=== PATIENT | female | born 1970 | race African-American/Black ===

== ENCOUNTER 2017-09-02 14:28 | Emergency (ER) | payer OTHER ==
[2017-09-02 14:42] VITALS: BP 134/95; PULSE 89; TEMP 98.4; BMI 21.7
--- NOTE | 2017-09-02 15:36 | PDOC ---
History of Present Illness - General Chief Complaint: Pain Stated Complaint: STOMACH PAIN Time Seen by Provider: 09/02/17 15:33 Past History - Past Medical History Allergies/Adverse Reactions: Allergies Allergy/AdvReac Type Severity Reaction Status Date / Time No Known Allergies Allergy Verified 09/02/17 14:37 Home Medications: Ambulatory Orders Cefadroxil Hydrate [Cefadroxil] 500 mg PO BID #14 capsule 05/05/14 Olmesartan/Hydrochlorothiazide [Benicar Hct 20-12.5 mg Tablet] 1 each PO DAILY 05/05/14 Clotrimazole/Betamet Diprop [Lotrisone -] 1 applic TP BID #1 tube NS 05/10/14 - Surgical History Abdominal Surgery: Yes () - Suicide/Smoking/Psychosocial Hx Smoking History: Never smoked Have you smoked in the past 12 months: No Number of Cigarettes Smoked Daily: 0 Information on smoking cessation initiated: No Hx Alcohol Use: No Drug/Substance Use Hx: No Substance Use Type: None *Physical Exam - Vital Signs Last Vital Signs Temp Pulse Resp BP Pulse Ox 98.4 F 89 16 134/95 100 09/02/17 14:38 09/02/17 14:38 09/02/17 14:38 09/02/17 14:38 09/02/17 14:38
== END 2017-09-02 16:05 | disposition left against medical advice (07) ==
LOC: JERFT 14:28
DX: Z53.21 Procedure and treatment not carried out due to patient leaving prior to being seen by health care provider (principal)
CPT/HCPCS: 99281-25

== ENCOUNTER 2017-09-02 16:15 | Emergency (ER) | payer OTHER ==
[2017-09-02 16:32] VITALS: BP 159/96; PULSE 95; TEMP 98.1; BMI 29.0
--- NOTE | 2017-09-02 17:54 | PDOC ---
History of Present Illness - General Chief Complaint: Pain Stated Complaint: PAIN Time Seen by Provider: 09/02/17 17:08 - History of Present Illness Initial Comments: 09/02/17 17:49 47 yo F with no significant pmh who presents with left lower quadrant abdominal pain. Pt. reports 4 days of stable, unrelenting, dull, crampy, focal, abdominal pain of 4/10 severity. Denies N/V, fevers/chills, postprandial pain, loss of appetite. constipation, diarrhea, dysuria, heamaturia, blood in stool, change in bowel habits. Last BM yesterday evening. Pt. endorses normal flatulence. Denies precipitating or alleviating factors. No changes in diet, sick contacts, or recent travels. LMP 2003. Patient on Depo Provera contraception. No irregular vaginal bleeding. Drinks alcohol 1 beer per night for 20 + years. + Tobacco use. Denies illicit drug use. H/o previous C section. Denies history of other abdominal procedures or GI pathology. Past History - Past Medical History Allergies/Adverse Reactions: Allergies Allergy/AdvReac Type Severity Reaction Status Date / Time No Known Allergies Allergy Verified 09/02/17 16:32 Home Medications: Ambulatory Orders Ciprofloxacin [Cipro -] 500 mg PO Q12H #14 tablet MDD 2 09/02/17 Medroxyprogesterone Acetate [Depo-Provera] 150 mg IM ASDIR 09/02/17 Metronidazole 500 mg PO TID #21 tablet 09/02/17 Nifedipine ER [Procardia Xl -] 30 mg PO DAILY 09/02/17 - Surgical History Abdominal Surgery: Yes () - Suicide/Smoking/Psychosocial Hx Smoking History: Never smoked Have you smoked in the past 12 months: No Number of Cigarettes Smoked Daily: 0 Information on smoking cessation initiated: No Hx Alcohol Use: No Drug/Substance Use Hx: No Substance Use Type: None Review of Systems - Review of Systems Comments:: 09/02/17 17:54 GENERAL/CONSTITUTIONAL: No fever or chills. No weakness. HEAD, EYES, EARS, NOSE AND THROAT: No change in vision. No ear pain or discharge. No sore throat.- CARDIOVASCULAR: No chest pain or shortness of breath RESPIRATORY: No cough, wheezing, or hemoptysis. GASTROINTESTINAL: + Abdominal pain. No nausea, vomiting, diarrhea or constipation. GENITOURINARY: No dysuria, frequency, or change in urination. MUSCULOSKELETAL: No joint or muscle swelling or pain. No neck or back pain. SKIN: No rash NEUROLOGIC: No headache, vertigo, loss of consciousness, or change in strength/ sensation. ENDOCRINE: No increased thirst. No abnormal weight change HEMATOLOGIC/LYMPHATIC: No anemia, easy bleeding, or history of blood clots. ALLERGIC/IMMUNOLOGIC: No hives or skin allergy. *Physical Exam - Vital Signs Last Vital Signs Temp Pulse Resp BP Pulse Ox 98.1 F 95 H 18 159/96 100 09/02/17 16:24 09/02/17 16:24 09/02/17 16:24 09/02/17 16:24 09/02/17 16:24 - Physical Exam Comments: 09/02/17 17:54 GENERAL: Awake, alert, and fully oriented, in no acute distress HEAD: No signs of trauma, normocephalic, atraumatic EYES: + Sclera icterus. PERRLA, EOMI, conjunctiva clear ENT: Auricles normal inspection, hearing grossly normal, nares patent, oropharynx clear without exudates. Moist mucosa NECK: Normal ROM, supple, no lymphadenopathy, JVD, or masses LUNGS: No distress, speaks full sentences, clear to auscultation bilaterally HEART: Regular rate and rhythm, normal S1 and S2, no murmurs, rubs or gallops, peripheral pulses normal and equal bilaterally. ABDOMEN: Soft, nontender, normoactive bowel sounds. No guarding, no rebound. No masses. Absent CVA ttp. Absent mcburney point tendernesws. Neg swain sign. Neg Rovsing sign. Neg suprapubic ttp. EXTREMITIES : Normal inspection, Normal range of motion, no edema. No clubbing or cyanosis. SKIN: Warm, Dry, normal turgor, no rashes or lesions noted. ED Treatment Course - LABORATORY CBC & Chemistry Diagram: 09/02/17 17:35 09/02/17 17:35 Medical Decision Making - Medical Decision Making 09/02/17 17:55 47 yo F with no significant pmh who presents with left lower focal quadrant abdominal pain of 4 days duration. Patient with no other associated symptoms and is hemodynamically stable.Pain is non reprducible and focal. No prior GI procedures. H/o . LMP 2003 and on Depo Provera. DDx: MSK related pain, Diverticulitis, ovarian cyst, ED Course: CBC, CMP, UA, Urine preg, CT AP 09/02/17 20:42 Pt. states that she is unable to wait in ED for formal interpretation of CT AP and provided us with her phone number. 09/02/17 22:35 CT AP: Mild wall thickening in distal sigmoid colon and rectum. Inflammatory vs infectious proctocolitis. Small/Mod fat containing umbilical hernia. 09/02/17 22:36 Urine preg: Neg Called patient ([phone]) and discussed CT AP results and F/u with GI. *DC/Admit/Observation/Transfer Diagnosis at time of Disposition: Strain of abdominal muscle Qualifiers: Encounter type: initial encounter Qualified Code(s): S39.011A - Strain of muscle, fascia and tendon of abdomen, initial encounter - Discharge Dispostion Disposition: HOME Condition at time of disposition: Stable Admit: No - Prescriptions Prescriptions: Ciprofloxacin [Cipro -] 500 mg PO Q12H #14 tablet MDD 2 Metronidazole 500 mg PO TID #21 tablet - Referrals Referrals: Toño Garcia MD [Staff Physician] - Omar Lopez MD [Primary Care Provider] - - Patient Instructions Printed Discharge Instructions: DI for Abdominal Pain-Adult Additional Instructions: Please retun to ED if you have abdominal pain with eating, nausea, vomiting, fevers/chills, worsening abdominal pain or worsening symptoms. Please follow up with primary care physician. - Attestations Physician Attestion: 09/02/17 20:32 I attest to the information provided in this note
[2017-09-02 18:08] LABS: BASOPHIL 0.6 % (0-2.0); EOSINOPHIL 1.1 % (0-4.5); MCH 30.5 pg (25.7-33.7); MCHC 34.1 g/dl (32.0-36.0); MEAN CELL VOLUME 89.3 fl (80-96); MEAN PLT VOLUME 8.3 fl (7.5-11.1); NEUTROPHILS 50.8 % (42.8-82.8); PLATELET COUNT 286 K/MM3 (134-434); RDW 14.4 % (11.6-15.6); WHITE BLOOD COUNT 10.1 K/mm3 (4.0-10.0)
--- NOTE | 2017-09-02 18:13 | PDOC ---
Attending Attestation - Medical Decision Making 47-year-old female, with no pmhx complaining of 4 days of left lower quadrant pain. No associated nausea, vomiting, fever, or chills. No urinary changes. No exacerbating factors. Pt is currently on depot, last injection was 12 weeks ago. LLQ pain with minimal tenderness on exam. Differential: uti, diverticulitis, pylo. Ovarian pathology planned CT, ua, ucg, and basic labs will be ordered. Pt declined pain medication at this time. <Annmarie Birch - Last Filed: 09/02/17 18:22> - Resident Resident Name: Charlie Smith - ED Attending Attestation I have performed the following: I have examined & evaluated the patient, The case was reviewed & discussed with the resident, I agree w/resident's findings & plan, Exceptions are as noted - HPI HPI: 09/02/17 18:13 . - Physicial Exam PE: 09/02/17 18:13 . - Medical Decision Making 09/02/17 18:13 . 09/02/17 20:42 pt unwilling to wait for results. gave phone number. ua pending. ct results pending. called radiology to expedite read. dc home. 09/02/17 22:07 called pt with results of ct scan, proctocolitis. given cipro flagyl x 7 days. and has followup number for dr. holt. explained findings and treatment over the phone. <Patsy Harper - Last Filed: 09/02/17 22:08> Physical Exam - Physical Exam Comments: GENERAL: Awake, alert, and fully oriented, in no acute distress HEAD: No signs of trauma EYES: PERRLA, EOMI, sclera anicteric, conjunctiva clear ENT: Auricles normal inspection, nares patent, oropharynx clear without exudates. Moist mucosa. NECK: Normal ROM, supple, no lymphadenopathy, JVD, or masses LUNGS: Breath sounds equal, clear to auscultation bilaterally. No wheezes, and no crackles HEART: Regular rate and rhythm, normal S1 and S2, no murmurs, rubs or gallops ABDOMEN: (+)Mild left lower quadrant tenderness. Soft, normoactive bowel sounds. No guarding, no rebound. No masses. No CVA tenderness. EXTREMITIES: Normal range of motion, no edema. No clubbing or cyanosis. No cords, erythema. Warm, well perfused tenderness NEUROLOGICAL: SKIN: Warm, Dry, normal turgor, no rashes or lesions noted. ANO x3. <Annmarie Birch - Last Filed: 09/02/17 18:22>
[2017-09-02 18:19] LABS: ALBUMIN 4.3 g/dl (3.4-5.0); ANION GAP 6 (8-16); BILIRUBIN,TOTAL 0.7 mg/dL (0.2-1.0); CALCIUM 9.1 mg/dL (8.5-10.1); CO2 27 mmol/L (21-32); CREATININE 0.7 mg/dL (0.55-1.02); GLUCOSE,RANDOM 80 mg/dL (74-106); SGOT/AST 12 U/L (15-37); SGPT/ALT 25 U/L (12-78); TOT PROT 7.5 g/dl (6.4-8.2)
[2017-09-02 18:20] LABS: ALK PHOS 102 U/L (45-117)
[2017-09-02 22:51] LABS: URINE APPEARANCE CLOUDY; URINE BILIRUBIN NEGATIVE (NEGATIVE); URINE BLOOD NEGATIVE (NEGATIVE); URINE COLOR YELLOW; URINE GLUCOSE (UA) NEGATIVE (NEGATIVE); URINE KETONE NEGATIVE (NEGATIVE); URINE NITRITE NEGATIVE (NEGATIVE); URINE UROBILINOGEN NEGATIVE mg/dL (0.2-1.0)
[2017-09-02 22:52] LABS: URINE PROTEIN 1+ (NEGATIVE)
[2017-09-02 22:55] LABS: CALCIUM OXALATE CRYSTALS MODERATE /hpf (NONE SEEN); URINE HYALINE CAST 3 /lpf; URINE MUCUS RARE; URINE RBC 2 /hpf (0-3); URINE WBC 4 /hpf (3-5)
[2017-09-03 11:57] LABS: URINE LEUK ESTERASE Negative (NEGATIVE)
== END 2017-09-02 20:53 | disposition home or self-care (01) ==
LOC: JER 16:15
DX: S39.012A Strain of muscle, fascia and tendon of lower back, initial encounter (principal); F17.210 Nicotine dependence, cigarettes, uncomplicated; X58.XXXA Exposure to other specified factors, initial encounter; Y93.89 Activity, other specified; Y92.89 Other specified places as the place of occurrence of the external cause; Y99.8 Other external cause status
CPT/HCPCS: 36415; 74177-TC; 80053; 81003; 81015; 84703; 85025; 99282-25

== ENCOUNTER 2021-08-24 05:20 | Day surgery (SDC) | payer OTHER ==
[2021-08-19 11:35] VITALS: BMI 25.0
[2021-08-24 12:47] VITALS: TEMP 97.3
[2021-08-24 13:14] VITALS: PULSE 65
[2021-08-24 13:22] VITALS: BP 160/100
== END 2021-08-24 13:49 | disposition home or self-care (01) ==
LOC: JASU-ENDO 05:20
PROVIDERS: ATTEND Internal Medicine Gastroenterology
PROC: 0DBK8ZX Excision of Ascending Colon, Via Natural or Artificial Opening Endoscopic, Diagnostic (ICD-10-PCS; principal; 2021-08-24 11:45)
DX: Z12.11 Encounter for screening for malignant neoplasm of colon (principal); K57.30 Diverticulosis of large intestine without perforation or abscess without bleeding
CPT/HCPCS: 81025; 88305-TC

== ENCOUNTER 2024-07-26 04:39 | Day surgery (SDC) | payer OTHER ==
[2024-07-20 17:13] VITALS: BMI 23.3
[2024-07-26] MEDS ORDERED: ACETAMINOPHEN 500 MG TABLET (FP) PO PRN (12:14)
[2024-07-26 15:06] VITALS: RESP 18
[2024-07-26] MEDS: LIDOCAINE HCL 1% PRESERVATIVE FREE - 30ML VIAL IJ ONE (18:41)
[2024-07-26 19:24] VITALS: BP 143/86; PULSE 76; TEMP 97.8
== END 2024-07-26 19:28 | disposition home or self-care (01) ==
LOC: JASU-SURG 04:39
PROVIDERS: ATTEND Pain Medicine Pain Medicine
PROC: 3E0T3BZ Introduction of Anesthetic Agent into Peripheral Nerves and Plexi, Percutaneous Approach (ICD-10-PCS; principal; 2024-07-26 16:00)
DX: M47.816 Spondylosis without myelopathy or radiculopathy, lumbar region (principal)
CPT/HCPCS: 76000-TC-FY; 81025

== ENCOUNTER 2024-08-23 04:16 | Day surgery (SDC) | payer OTHER ==
[2024-08-21 15:14] VITALS: BMI 23.1
[2024-08-23] MEDS ORDERED: ACETAMINOPHEN 500 MG TABLET (FP) PO PRN (09:12)
[2024-08-23 09:53] VITALS: RESP 18
[2024-08-23] MEDS: LIDOCAINE 1% P/F 10 MG/ML VIAL INF ONE (11:43)
[2024-08-23] MEDS: BUPIVACAINE HCL/PF 0.75% 10 ML VIAL NR ONE (11:43)
[2024-08-23 12:19] VITALS: BP 138/94; PULSE 73; TEMP 97.7
== END 2024-08-23 12:25 | disposition home or self-care (01) ==
LOC: JASU-SURG 04:16
PROVIDERS: ATTEND Pain Medicine Pain Medicine
PROC: 3E0T3BZ Introduction of Anesthetic Agent into Peripheral Nerves and Plexi, Percutaneous Approach (ICD-10-PCS; principal; 2024-08-23 11:43)
DX: M47.816 Spondylosis without myelopathy or radiculopathy, lumbar region (principal)
CPT/HCPCS: 76000-TC-FY; 81025

== ENCOUNTER 2024-09-21 05:07 | Day surgery (SDC) | payer OTHER ==
[2024-09-19 10:34] VITALS: BMI 23.9
[2024-09-21] MEDS ORDERED: LIDOCAINE HCL/PF 1% SDV 5ML VIAL ONE (07:27)
[2024-09-21] MEDS ORDERED: BUPIVACAINE HCL/PF 0.75% 10 ML VIAL ONE (07:27)
[2024-09-21] MEDS ORDERED: ACETAMINOPHEN 500 MG TABLET (FP) PO PRN (09:02)
[2024-09-21 11:02] VITALS: RESP 20
[2024-09-21] MEDS: LIDOCAINE HCL/EPINEPHRINE/PF 10 ML VIAL IVPUSH ONE (11:42)
[2024-09-21] MEDS: LIDOCAINE HCL 1% PRESERVATIVE FREE - 30ML VIAL IJ ONE (11:42)
[2024-09-21] MEDS: BUPIVACAINE HCL/PF 0.75% 10 ML VIAL NR ONE (11:46)
[2024-09-21] MEDS: DEXAMETHASONE SOD PHOSPHATE 10 MG/1 ML VIAL IVPUSH ONE (11:46)
[2024-09-21 14:10] VITALS: BP 127/88; PULSE 81; TEMP 98
== END 2024-09-21 12:30 | disposition home or self-care (01) ==
LOC: JASU-SURG 05:07
PROVIDERS: ATTEND Pain Medicine Pain Medicine
PROC: 3E0T33Z Introduction of Anti-inflammatory into Peripheral Nerves and Plexi, Percutaneous Approach (ICD-10-PCS; 2024-09-21)
PROC: 3E0T3BZ Introduction of Anesthetic Agent into Peripheral Nerves and Plexi, Percutaneous Approach (ICD-10-PCS; principal; 2024-09-21 09:30)
DX: M47.816 Spondylosis without myelopathy or radiculopathy, lumbar region (principal)
CPT/HCPCS: 76000-TC-FY; 81025; J1100